=== PATIENT | female | born 1955 | race Caucasian/White ===

== ENCOUNTER 2022-03-14 19:01 | Emergency (ER) | payer MEDICARE, SELFPAY ==
--- NOTE | 2022-03-14 19:11 | PC.NURSE ---
in br to obtain ua spec.
[2022-03-14 19:21] VITALS: BP 156/102; PULSE 94; RESP 16; TEMP 36.9; O2SAT 100
--- NOTE | 2022-03-14 19:21 | ED.FEMALEGU ---
HPI - Female Genitourinary General Chief complaint: Back Pain/Injury Stated complaint: pain in lower right of back Time Seen by Provider: 03/14/22 19:21 History of Present Illness HPI Narrative: Vivian Knowles is a 66-year-old female with a PMH of asthma anxiety, hypertension, GERD, high cholesterol [facility] complaints of continued dysuria after taking 3 days of Cipro for a UTI that was diagnosed at another facility. She is also complaining of right lower flank back pain Related Data Home Medications Medication Instructions Recorded Confirmed albuterol sulfate 90 mcg/actuation inhalation 03/14/22 aerosol inhaler amitriptyline 10 mg tablet mg 03/14/22 03/14/22 lisinopril 20 tablet 03/14/22 mg-hydrochlorothiazide 25 mg tablet pantoprazole 40 mg tablet,delayed mg PO 03/14/22 release pramipexole 0.25 mg tablet mg 03/14/22 rosuvastatin 10 mg tablet mg 03/14/22 venlafaxine 150 mg mg PO 03/14/22 capsule,extended release 24 hr Allergies Allergy/AdvReac Type Severity Reaction Status Date / Time NKA Allergy Unknown Uncoded 11/05/21 12:38 NA Allergy Uncoded 11/05/21 12:38 Review of Systems Review of Systems: CONSTITUTIONAL: Denies fever, chills, sweats. EYES: Denies visual changes, redness, discharge. ENT: Denies rhinorrhea, congestion, sore throat, otalgia. CARDIOVASCULAR: Denies chest pain, palpitations, edema. RESPIRATORY: Denies dyspnea, wheezing, cough GASTROINTESTINAL: Denies abdominal pain, nausea, vomiting, diarrhea. GENITOURINARY: Has dysuria, hematuria, abnormal discharge SKIN: Denies rash or itching. NEUROLOGIC: Denies numbness, or focal weakness. PSYCHIATRIC: Denies anxiety or depression. Right lower flank pain PMFSH Past Medical History Medical History Anxiety GERD (gastroesophageal reflux disease) High cholesterol HTN (hypertension) Social History Social History (Updated 03/14/22 @ 19:29 by Amanda Guillory CNP) Smoking packs per day: 1 Smoking cigarettes per day: 20.0 Smoking status: Current every day smoker Alcohol intake: current Comments At time of signature, I agree with nursing past medical, surgical, social and family history. There is no relevant family history pertinent to the presenting complaint. Exam Narrative: GENERAL: This is a well-nourished, well-developed patient, in mild distress. HEAD: normocephalic, atraumatic. EYES: Sclera clear/white. Vision is grossly intact. EARS: External ears normal, a. Hearing grossly intact. NOSE: External nose normal without nasal discharge, nares without redness, no rhinorrhea. THROAT: Mucous membranes moist, NECK: Neck supple, non-tender CARDIOVASCULAR: Regular rate and rhythm without murmurs, gallops, or rubs. RESPIRATORY: Clear to auscultation. Breath sounds equal bilaterally. No wheezes, rales, or rhonchi. GASTROINTESTINAL: Abdomen soft, non-tender, SKIN: warm, intact with no suspicious lesions or rash, good texture and turgor. NEURO: awake, alert, and oriented to person, place and time. There were no obvious focal neurologic abnormalities. Steady gait EXTREMITIES: Normal range of motion. BACK: Nontender without deformity, right lower flank- no pain when bends over but that does hurt when she stands up and when she tries to have straight pain in the right flank is increases and also is painful when she turns left or right. Tender to palpation Course Course Emergency Course: Patient here with complaints of right lower flank painafter completing a 3-day course of Cipro from another facility-thought she needed more antibiotics UA shows negative except for trace lysed blood Patient has pain symptoms and flank when twists or tries to stand straight up Start a muscle relaxant and Tylenol and follow-up with primary care physician-if pain worsens, go to the ER Level of Care: Express Care Visit Vital Signs Vital signs: Vital Signs Temper
== END 2022-03-14 19:42 | disposition home or self-care (01) ==
PROVIDERS: Emergency Provider Nurse Practitioner; PCP Family Medicine
DX: R10.9 Unspecified abdominal pain (principal); F17.210 Nicotine dependence, cigarettes, uncomplicated; K21.9 Gastro-esophageal reflux disease without esophagitis; E78.00 Pure hypercholesterolemia, unspecified; I10 Essential (primary) hypertension; J45.909 Unspecified asthma, uncomplicated; F41.9 Anxiety disorder, unspecified
CPT/HCPCS: 81003; 99213; G0463

== ENCOUNTER 2022-04-17 10:09 | Emergency (ER) | payer MEDICARE, SELFPAY ==
--- NOTE | ~2022-04-17 | XR_ITS ---
EXAMINATION: XR hand LT min 3V INDICATION: Left hand pain and bruising, initial encounter TECHNIQUE: Three views of the right hand are obtained. COMPARISON: None available FINDINGS: There is an acute, traumatic, closed, transverse fracture in the proximal neck of the fifth proximal phalanx. There are approximately 30 degrees of dorsal angulation at the fracture site. No a dditional fracture is identified. There is mild osteoarthritis of multiple interphalangeal joints and moderate osteoarthritis at the first carpometacarpal joint. IMPRESSION: 1. Acute fracture in the proximal neck of the fifth proximal phalanx with dorsal angulation. Reviewed, dictated and finalized at location A. IMPRESSION: 1. Acute fracture in the proximal neck of the fifth proximal phalanx with dorsa l angulation.
[2022-04-17 10:24] VITALS: BP 115/75; PULSE 88; RESP 18; TEMP 36.3; O2SAT 92
--- NOTE | 2022-04-17 10:32 | ED.UPPEXIN ---
HPI - Extremity Injury (Upper) General Chief Complaint: Extremity Injury, Upper Stated Complaint: right hand injury Time Seen by Provider: 04/17/22 10:48 Source: patient and RN notes reviewed Mode of arrival: ambulatory Limitations: no limitations History of Present Illness HPI narrative: 67-year-old female presents to the [facility] complaints pain. Patient states that she tripped fell between 930 10:00 a.m. last night over a parking block at a gas station. Had cleaned it at home. Decreased range of motion of the 5th finger. Open wound to the palmar aspect on over 5th phalanx right hand. Unknown last Tdap MD complaint: injury to: right Onset (ago): hour(s) (12+) Related Data Home Medications Medication Instructions Recorded Confirmed albuterol sulfate 90 mcg/actuation 2 puff inhalation DIRECTED 03/14/22 04/17/22 aerosol inhaler amitriptyline 10 mg tablet 19 mg PO DAILY 03/14/22 04/17/22 lisinopril 20 1 tablet PO DAILY 03/14/22 04/17/22 mg-hydrochlorothiazide 25 mg tablet pantoprazole 40 mg tablet,delayed 40 mg PO DAILY 03/14/22 04/17/22 release pramipexole 0.25 mg tablet 0.25 mg PO DAILY 03/14/22 04/17/22 rosuvastatin 10 mg tablet 10 mg PO DAILY 03/14/22 04/17/22 venlafaxine 150 mg 150 mg PO DAILY 03/14/22 04/17/22 capsule,extended release 24 hr diazepam 10 mg tablet 10 mg PO DAILY 04/17/22 04/17/22 Allergies Allergy/AdvReac Type Severity Reaction Status Date / Time No Known Allergies Allergy Verified 04/17/22 10:17 Review of Systems Review of Systems: All systems reviewed & are unremarkable except as noted in HPI and below Constitutional: Constitutional: Reports no additional constitutional complaints, Denies chills and Denies fever(s) Eyes: Eyes: Reports no additional eye complaints ENT: Reports system reviewed and no additional complaints, except as documented Cardiovascular: Cardiovascular: Reports no additional cardiovascular complaints Respiratory: Respiratory: Reports no additional respiratory complaints Gastrointestinal: Gastrointestinal: Reports no additional gastrointestinal complaints Musculoskeletal: Musculoskeletal: Reports as per HPI Integumentary/Breasts: Skin/Breast: Reports as per HPI Neurologic: Reports system reviewed and no additional complaints, except as documented Psychiatric: Psychiatric: Reports no additional psychiatric complaints Allergic/Immunologic: Allergic/Immunologic: Reports no additional allergic/immunologic complaints [facility] Past Medical History Medical History Anxiety GERD (gastroesophageal reflux disease) High cholesterol HTN (hypertension) Social History Social History Smoking packs per day: 1 Smoking cigarettes per day: 20.0 Smoking status: Current every day smoker Alcohol intake: current Comments At the time of my signature, I reviewed and agree with the nursing past medical, surgical, social, and family history. There is no relevant family history pertinent to the patient complaint. Exam Const: General: healthy appearing, no acute distress, alert and well nourished Nutritional Appearance: well nourished Orientation/consciousness: patient oriented x3 Limitations: no limitations HENMT: Head: normal to inspection Ears: external ears normal Eyes: General: appearance normal, both eyes and all related structures Conjunctivae: conjunctivae normal Pupils: Equal, round and reactive pupils present Neck: Neck: normal visual inspection, no lymphadenopathy and no meningeal signs Chest: Chest palpation & inspection: normal inspection of the chest Resp: Effort & Inspection: normal respiratory effort and no use of accessory muscles Auscultation: clear to auscultation bilaterally, no crackles, no rales, no rhonchi and no wheezes Cardio: Rate: regular rate Rhythm: regular rhythm Skin: General skin exam: normal color Rash
== END 2022-04-17 11:13 | disposition short-term general hospital (02) ==
PROVIDERS: Emergency Provider Nurse Practitioner
DX: S62.616B Displaced fracture of proximal phalanx of right little finger, initial encounter for open fracture (principal); W18.09XA Striking against other object with subsequent fall, initial encounter; F17.210 Nicotine dependence, cigarettes, uncomplicated; K21.9 Gastro-esophageal reflux disease without esophagitis; E78.00 Pure hypercholesterolemia, unspecified; I10 Essential (primary) hypertension; F41.9 Anxiety disorder, unspecified
CPT/HCPCS: 29130; 73130; 99213; 99214; G0463

== ENCOUNTER 2023-05-03 15:22 | Emergency (ER) | payer MEDICARE, SELFPAY ==
[2023-05-03 15:34] VITALS: BP 126/76; PULSE 95; RESP 16; TEMP 36.9; O2SAT 99
--- NOTE | 2023-05-03 16:52 | ED.SKABFB ---
HPI - Skin/Abscess/Foreign Bdy General Chief complaint: Skin/Abscess/Foreign Body Stated complaint: rash on right arm Time Seen by Provider: 05/03/23 16:34 Source: patient and RN notes reviewed Mode of arrival: ambulatory Limitations: no limitations History of Present Illness HPI narrative: Patient presents today complaining of a rash to her right forearm that occurred 1 week ago. Denies itching, pain, or any symptoms to go along with this rash. Denies recent illness. Patient states they are not causing her any distress, but she does not like the way they look. She has tried applying a friend's triamcinolone a few times without relief of symptoms. Related Data Home Medications Medication Instructions Recorded Confirmed albuterol sulfate 90 mcg/actuation 2 puff inhalation DIRECTED 03/14/22 05/03/23 aerosol inhaler amitriptyline 10 mg tablet 19 mg PO DAILY 03/14/22 05/03/23 lisinopril 20 1 tablet PO DAILY 03/14/22 05/03/23 mg-hydrochlorothiazide 25 mg tablet pantoprazole 40 mg tablet,delayed 40 mg PO DAILY 03/14/22 05/03/23 release pramipexole 0.25 mg tablet 0.25 mg PO DAILY 03/14/22 05/03/23 rosuvastatin 10 mg tablet 10 mg PO DAILY 03/14/22 05/03/23 venlafaxine 150 mg 150 mg PO DAILY 03/14/22 05/03/23 capsule,extended release 24 hr diazepam 10 mg tablet 10 mg PO DAILY 04/17/22 05/03/23 cyclobenzaprine 5 mg tablet See Rx Instructions .Route .COMPLEX 05/03/23 05/03/23 Allergies Allergy/AdvReac Type Severity Reaction Status Date / Time No Known Allergies Allergy Verified 05/03/23 15:55 Review of Systems Review of Systems: CONSTITUTIONAL: Denies body aches, fever, chills, or sweats. EYES: Denies visual changes, redness, or discharge. ENT: Denies rhinorrhea, congestion, sore throat, or otalgia. CARDIOVASCULAR: Denies chest pain, palpitations, or edema. RESPIRATORY: Denies cough or dyspnea. GASTROINTESTINAL: Denies abdominal pain, nausea, vomiting, or diarrhea. GENITOURINARY: Denies dysuria or hematuria. SKIN: Denies itching, or wounds.+ rash MUSCULOSKELETAL: Denies back pain, joint pain, or myalgia. NEUROLOGIC: Denies headache, numbness, tingling, or weakness. PSYCH: Denies depression or anxiety. [facility] Past Medical History Medical History Anxiety GERD (gastroesophageal reflux disease) High cholesterol HTN (hypertension) Social History Social History Smoking packs per day: 1 Smoking cigarettes per day: 20.0 Smoking status: Current every day smoker Alcohol intake: current Comments At time of signature, I have reviewed and agree with nursing past medical, surgical, social and family history unless otherwise noted. Please see nursing chart for further information. There is no relevant family history pertinent to the presenting complaint Exam Narrative: GENERAL: Well-appearing, well-nourished, and in no acute distress. HEAD: Normocephalic, atraumatic. EYES: EOMI. No redness or drainage. Conjunctivae normal. ENT: Mucous membranes pink and moist. NECK: Normal AROM. CHEST: No respiratory distress. EXTREMITIES: Normal range of motion. No edema. SKIN: Warm, dry. Capillary refill normal. Normal skin turgor. Few scattered macular pink/vita lesions to the right forearm and 2 or 3 to the left forearms. They are smooth and bland in with the skin surface. No induration, edema. NEURO: No focal deficits. Alert and oriented x3. Gait steady. PSYCH: Normal affect. No signs of depression or anxiety. Course Course Level of Care: Express Care Visit Vital Signs Vital signs: Vital Signs Temperature 98.4 F 05/03/23 15:34 Pulse Rate 95 05/03/23 15:34 Respiratory Rate 16 05/03/23 15:34 Blood Pressure 126/76 05/03/23 15:34 Pulse Oximetry 99 05/03/23 15:34 Oxygen Delivery Room Air 05/03/23 15:34 Temperature 98.4 F 05/03/23 15:34 Pulse
== END 2023-05-03 16:58 | disposition home or self-care (01) ==
PROVIDERS: Emergency Provider Nurse Practitioner; PCP Physician Assistant Medical
DX: R21 Rash and other nonspecific skin eruption (principal); F41.9 Anxiety disorder, unspecified; K21.9 Gastro-esophageal reflux disease without esophagitis; E78.00 Pure hypercholesterolemia, unspecified; I10 Essential (primary) hypertension
CPT/HCPCS: 99211; G0463

== ENCOUNTER 2023-07-07 18:30 | Emergency (ER) | payer MEDICARE, SELFPAY ==
--- NOTE | ~2023-07-07 | XR_ITS ---
EXAMINATION: XR abdomen/kub 1V DATE: 07/07/2023 19:15 INDICATION: Left flank pain. Microscopic hematuria. TECHNIQUE: A supine view of the abdomen was obtained. COMPARISON: CT abdomen and pelvis 02/14/2016 FINDINGS: There are no dilated loops of bowel. Calcifications in the pelvis are likely phleboliths. T here is no visible urolithiasis. There is a total right hip arthroplasty. IMPRESSION: 1. No visible urolithiasis. Reviewed, dictated and finalized at location E. [employer] IMPRESSION: 1. No visible urolithiasis.
[2023-07-07 18:53] VITALS: BP 117/86; PULSE 97; RESP 16; TEMP 37.3; O2SAT 98
--- NOTE | 2023-07-07 18:54 | ED.FEMALEGU ---
HPI - Female Genitourinary General Chief complaint: Urogenital-Female Stated complaint: urinary issue Time Seen by Provider: 07/07/23 18:54 Source: patient Mode of arrival: ambulatory Limitations: no limitations History of Present Illness HPI Narrative: 68-year-old female presents with complaint of left flank pain for 3-4 days. No other complaints today. Reports normal bowel movements. No urinary symptoms. Afebrile. All systems reviewed and negative except as noted above. Related Data Home Medications Medication Instructions Recorded Confirmed albuterol sulfate 90 mcg/actuation 2 puff inhalation DIRECTED 03/14/22 07/07/23 aerosol inhaler amitriptyline 10 mg tablet 19 mg PO DAILY 03/14/22 07/07/23 lisinopril 20 1 tablet PO DAILY 03/14/22 07/07/23 mg-hydrochlorothiazide 25 mg tablet pantoprazole 40 mg tablet,delayed 40 mg PO DAILY 03/14/22 07/07/23 release pramipexole 0.25 mg tablet 0.25 mg PO DAILY 03/14/22 07/07/23 rosuvastatin 10 mg tablet 10 mg PO DAILY 03/14/22 07/07/23 venlafaxine 150 mg 150 mg PO DAILY 03/14/22 07/07/23 capsule,extended release 24 hr diazepam 10 mg tablet 10 mg PO DAILY 04/17/22 07/07/23 cyclobenzaprine 5 mg tablet See Rx Instructions .Route .COMPLEX 05/03/23 07/07/23 Allergies Allergy/AdvReac Type Severity Reaction Status Date / Time No Known Allergies Allergy Verified 07/07/23 18:41 Review of Systems Review of Systems: CONSTITUTIONAL: Denies fever, chills, or sweats. EYES: Denies visual changes, redness, or discharge. ENT: Denies rhinorrhea, congestion, sore throat, or otalgia. CARDIOVASCULAR: Denies chest pain, palpitations, or edema. RESPIRATORY: Denies cough or dyspnea. GASTROINTESTINAL: Denies abdominal pain, nausea, vomiting, or diarrhea. GENITOURINARY: Denies dysuria or hematuria. Reports left flank pain. SKIN: Denies rash or itching. MUSCULOSKELETAL: Denies back pain, joint pain, or myalgia. NEUROLOGIC: Denies headache, numbness, or weakness. PSYCHIATRIC: Denies anxiety or depression. All other systems reviewed are negative, except as documented in HPI. [facility] Past Medical History Medical History Anxiety GERD (gastroesophageal reflux disease) High cholesterol HTN (hypertension) Social History Social History Smoking packs per day: 1 Smoking cigarettes per day: 20.0 Smoking status: Current every day smoker Alcohol intake: current Comments At time of signature, agree with nursing past medical, surgical, social and family history. There is no relevant family history pertinent to the presenting complaint. Exam Narrative: GENERAL: This is a well-nourished, well-developed patient, in no apparent distress. HEAD: normocephalic, atraumatic. EYES: PERRL. Sclera clear/white. Vision is grossly intact. EARS: External ears normal NOSE: External nose normal NECK: Neck supple, non-tender without lymphadenopathy, masses or thyromegaly. CARDIOVASCULAR: Regular rate and rhythm without murmurs, gallops, or rubs. RESPIRATORY: Clear to auscultation. Breath sounds equal bilaterally. No wheezes, rales, or rhonchi. GASTROINTESTINAL: Abdomen soft, non-tender, nondistended. Bowel sounds are active. No hepato-splenomegaly, or palpable masses. No guarding. SKIN: warm, Dry, intact with no suspicious lesions or rash, good texture and turgor. NEURO: awake, alert, and oriented to person, place and time. There were no obvious focal neurologic abnormalities. EXTREMITIES: No joint tenderness, effusion, or edema noted. BACK: No CVA tenderness. Course Course Level of Care: Express Care Visit Vital Signs Vital signs: Reviewed MDM - Female Genitourinary MDM Narrative Medical decision making narrative: Patient is aware of diagnosis, understands and agrees to treatment plan. Anticipatory guidance given. Patient agrees to follow-up as d
== END 2023-07-07 19:41 | disposition home or self-care (01) ==
PROVIDERS: Emergency Provider Nurse Practitioner Family; PCP Physician Assistant Medical
DX: R10.9 Unspecified abdominal pain (principal); K21.9 Gastro-esophageal reflux disease without esophagitis; E78.00 Pure hypercholesterolemia, unspecified; I10 Essential (primary) hypertension; F17.210 Nicotine dependence, cigarettes, uncomplicated; F41.9 Anxiety disorder, unspecified
CPT/HCPCS: 74018; 81003; 99213; G0463

== ENCOUNTER 2024-06-22 11:09 | Emergency (ER) | payer MEDICARE, SELFPAY ==
--- NOTE | 2024-06-22 11:14 | ED_ITS ---
HPI - URI/Sore Throat General Stated Complaint: cough, feeling bad Time Seen by Provider: 06/22/24 11:12 Source: patient Mode of arrival: ambulatory Limitations: no limitations History of Present Illness HPI Narrative: Patient is a 69-year-old female that presents with cough, fatigue and body aches for 4-5 days. Patient has history of COPD and was hospitalized last year for pneumonia for 5 days. Patient reports this feels similar. Patient is normally on oxygen at night but this morning was satting 85 at home. States she called her doctor and was told to come to urgent care. Related Data Home Medications ?Medication ?Instructions ?Recorded ?Confirmed ?Last Taken ?Type albuterol sulfate 90 mcg/actuation 2 puff inhalation DIRECTED 03/14/22 07/07/23 Unknown History aerosol inhaler amitriptyline 10 mg tablet 19 mg PO DAILY 03/14/22 07/07/23 Unknown History lisinopril 20 1 tablet PO DAILY 03/14/22 07/07/23 Unknown History mg-hydrochlorothiazide 25 mg tablet pantoprazole 40 mg tablet,delayed 40 mg PO DAILY 03/14/22 07/07/23 Unknown History release pramipexole 0.25 mg tablet 0.25 mg PO DAILY 03/14/22 07/07/23 Unknown History rosuvastatin 10 mg tablet 10 mg PO DAILY 03/14/22 07/07/23 Unknown History venlafaxine 150 mg 150 mg PO DAILY 03/14/22 07/07/23 Unknown History capsule,extended release 24 hr diazepam 10 mg tablet 10 mg PO DAILY 04/17/22 07/07/23 Unknown History cyclobenzaprine 5 mg tablet See Rx Instructions .Route .COMPLEX 05/03/23 07/07/23 Unknown History Allergies Allergy/AdvReac Type Severity Reaction Status Date / Time No Known Allergies Allergy Verified 07/07/23 18:41 Review of Systems Review of Systems: All systems reviewed & are unremarkable except as noted in HPI and below Constitutional: Constitutional: Denies body ache(s), Denies chills, Reports fatigue, Denies fever(s), Denies headache(s), Denies malaise and Denies weakness Eyes: Eyes: Denies blurry vision, Denies itchy eyes and Denies loss of vision ENT: Denies otalgia, Denies headache(s), Reports nasal congestion, Denies sinus pain and Denies sore throat Cardiovascular: Cardiovascular: Denies chest pain, Denies irregular heart rhythm and Denies dyspnea Respiratory: Respiratory: Reports cough and Reports dyspnea Gastrointestinal: Gastrointestinal: Denies abdominal pain, Denies diarrhea, Denies nausea and Denies vomiting Musculoskeletal: Musculoskeletal: Denies back pain, Reports myalgias and Denies arthralgias Integumentary/Breasts: Skin/Breast: Denies pruritus and Denies rash Neurologic: Denies headache(s), Denies loss of vision and Denies weakness Psychiatric: Psychiatric: Reports no additional psychiatric complaints Endocrine: Endocrine: Denies fatigue Allergic/Immunologic: Allergic/Immunologic: Denies itchy eyes PMFSH Past Medical History Medical History Anxiety GERD (gastroesophageal reflux disease) High cholesterol HTN (hypertension) Social History Social History Smoking packs per day: 1 Smoking cigarettes per day: 20.0 Smoking status: Current every day smoker Alcohol intake: current Comments At time of signature, agree with nursing past medical, surgical, social and family history. There is no relevant family history pertinent to the presenting complaint. Exam Const: General: cooperative, healthy appearing, comfortable, no acute distress and well nourished Nutritional Appearance: well nourished Orientation/consciousness: patient oriented x3 Limitations: no limitations HENMT: Head: normal to inspection, normocephalic and atraumatic Ears: hearing grossly normal bilaterally, external ears normal, TM's normal bilaterally, EAC's normal and no periauricular adenopathy Face/Nose/Sinus: Normal external nose present, Abnormal mucous membranes and turbinates present erythematous bilateral and diffuse, normal facial exam, sinuses nontender and face symmetric Face and sinus: normal facial exam, sinuses nontender and face symmetric Mouth: Yes Normal oral and palatal mucosa present, Yes lip normal, Yes tongue normal, Yes Normal salivary glands and ducts present, Yes oropharynx normal and Yes moist mucous membranes Teeth and gingiva: dentition normal Throat: posterior oropharynx normal, tonsils normal and uvula midline Eyes: General: appearance normal, both eyes and all related structures Alignment and Position: alignment normal and position normal Periorbital: periorbital findings normal Eyelids: eyelids normal Pupils: Equal, round and reactive pupils present Neck: Neck: normal visual inspection, full ROM, no lymphadenopathy and supple Chest: Chest palpation & inspection: normal inspection of the chest and normal palpation of entire chest wall Resp: Effort & Inspection: normal respiratory effort and able to speak in complete sentences Auscultation: no crackles, no rales, no rhonchi, no wheezes and diminished lung sounds diffuse Cardio: Rate: regular rate Rhythm: regular rhythm Heart sounds: S1 normal heart sound present and S2 normal heart sound present GI: Inspection: normal to inspection Skin: General skin exam: normal color and no rashes or lesions noted Neuro: General: patient oriented x3 and moves all extremities Cranial nerves: Yes Equal, round and reactive pupils present Speech: normal speech Gait exam (Neuro): Normal gait present Extrem: General: normal to inspection, full ROM and no edema Psych: Appearance: grossly normal and well kempt Mental Status: mental status grossly normal Speech and movement: Normal speech and movement present Affect: normal affect Attitude: cooperative Thought process: Normal thought process present Course Course Emergency Course: Patient being transferred to [facility] for further workup and evaluation. Concerning vitals of oxygen 8182 on room air, 92 on 2 L and 95 on 4 L. Respirations are also 30-36. Portions of this record may have been created with voice recognition software Level of Care: Express Care Visit Vital Signs Vital signs: Reviewed Transfer Transfered to: [facility] Transportation: ALS Transfer rationale: Vitals of oxygen 8182 on room air, 92 on 2 L and 95 on 4 L. Respirations are also 30-36. Accepting physician: Johnna MDM - URI/Sore Throat [facility] Narrative Medical decision making narrative: Patient being transferred to [facility] more ill for further workup and evaluation. Concern for new oxygen requirement and possible need for IV antibiotics. Differential diagnosis considered: Pneumonia, Loya virus, strep pharyngitis, allergic rhinitis, upper respiratory tract infection, sinusitis, rhinosinusitis, nasopharyngitis. viral pharyngitis, otitis media, otitis externa, otitis effusion, foreign body, cerumen impaction, viral syndrome, and influenza.? Exam findings show no acute concerns or changes; patient is non-toxic appearing and is in no distress.? Patient is appropriate for outpatient treatment and follow- up.? Medical Records Attestation: I reviewed the patient's medical records. Discharge Plan Discharge Clinical Impression: Hypoxia Patient Disposition: Acute Care Hospital Condition: Guarded Prognosis Patient Language: Finnish Prescriptions: No Action venlafaxine 150 mg capsule,extended release 24hr 150 mg PO DAILY amitriptyline 10 mg tablet 19 mg PO DAILY pantoprazole 40 mg tablet,delayed release (DR/EC) 40 mg PO DAILY pramipexole 0.25 mg tablet 0.25 mg PO DAILY lisinopril-hydrochlorothiazide 20-25 mg tablet 1 tablet PO DAILY albuterol sulfate 90 mcg/actuation HFA aerosol inhaler 2 puff INHALATION DIRECTED rosuvastatin 10 mg tablet 10 mg PO DAILY diazepam 10 mg tablet 10 mg PO DAILY cyclobenzaprine 5 mg tablet See Rx Instructions .ROUTE .COMPLEX Rx Instructions: Rx Follow-up/Referrals: Sriram,OTIS Castro [Primary Care Provider] - Time of Disposition: 11:44
[2024-06-22 11:20] VITALS: PULSE 90; RESP 36; O2SAT 93
[2024-06-22 11:26] VITALS: BP 120/79; PULSE 92; RESP 16; TEMP 36.3; O2SAT 86
[2024-06-22 11:33] VITALS: PULSE 75; RESP 30; O2SAT 93
[2024-06-22 11:35] VITALS: PULSE 88; RESP 30; O2SAT 96
[2024-06-22 11:41] VITALS: PULSE 80; RESP 30; O2SAT 96
== END 2024-06-22 11:41 | disposition short-term general hospital (02) ==
PROVIDERS: Emergency Provider Nurse Practitioner Family; PCP Physician Assistant Medical
DX: R09.02 Hypoxemia (principal); Z99.81 Dependence on supplemental oxygen; F17.210 Nicotine dependence, cigarettes, uncomplicated; I10 Essential (primary) hypertension; E78.00 Pure hypercholesterolemia, unspecified; K21.9 Gastro-esophageal reflux disease without esophagitis; F41.9 Anxiety disorder, unspecified
CPT/HCPCS: 99215; G0463